=== PATIENT | female | born 2000 | race Caucasian/White ===

== ENCOUNTER 2021-07-12 10:17 | Emergency (ER) | payer MEDICAID, SELFPAY ==
[2021-07-12 10:32] VITALS: BP 112/54; PULSE 72; RESP 16; TEMP 37.1; O2SAT 99
--- NOTE | 2021-07-12 10:32 | ED.URI ---
HPI - URI/Sore Throat General Chief Complaint: Upper Respiratory Infection Stated Complaint: Sinus Time Seen by Provider: 07/12/21 10:32 Source: patient and RN notes reviewed Mode of arrival: ambulatory Limitations: no limitations History of Present Illness HPI Narrative: 20-year-old female presents to the [facility] with complaints of sinus congestion since yesterday. Patient states that she takes daily allergy medication. Has tried DayQuil and NyQuil. Took a home COVID test last night which was negative. Denies fevers. Reports cough worse at night. MD elicited complaint: nasal congestion and sinus pain Onset (ago): day(s) (1) Related Data Home Medications Medication Instructions Recorded Confirmed No Home Medications 07/12/21 07/12/21 Allergies Allergy/AdvReac Type Severity Reaction Status Date / Time No Known Allergies Allergy Verified 07/12/21 11:03 Review of Systems Review of Systems: All systems reviewed & are unremarkable except as noted in HPI and below Constitutional: Constitutional: Reports no additional constitutional complaints, Denies chills and Denies fever(s) Eyes: Eyes: Reports no additional eye complaints ENT: Reports as per HPI and Reports nasal congestion Cardiovascular: Cardiovascular: Reports no additional cardiovascular complaints Respiratory: Respiratory: Reports as per HPI, Denies chest congestion, Reports cough, Denies dyspnea and Denies wheezing Gastrointestinal: Gastrointestinal: Reports no additional gastrointestinal complaints Musculoskeletal: Musculoskeletal: Reports no additional musculoskeletal complaints Integumentary/Breasts: Skin/Breast: Reports system reviewed and no additional complaints, except as docu Neurologic: Reports system reviewed and no additional complaints, except as documented Psychiatric: Psychiatric: Reports no additional psychiatric complaints Allergic/Immunologic: Allergic/Immunologic: Reports no additional allergic/immunologic complaints [facility] Past Medical History Medical History (Updated 07/12/21 @ 11:05 by Kiley Marsh APRN) Seasonal allergies Surgical History Surgical History (Updated 07/12/21 @ 11:03 by Kiley Marsh APRN) No pertinent past surgical history Social History Social History (Updated 07/12/21 @ 18:32 by Kiley Marsh APRN) Living arrangements: with friend(s) Occupation/Education: unemployed Gender identity (if verbalized by the patient): Female Comments At the time of my signature, I reviewed and agree with the nursing past medical, surgical, social, and family history. There is no relevant family history pertinent to the patient complaint. Exam Const: General: healthy appearing, no acute distress and alert Nutritional Appearance: well nourished Orientation/consciousness: patient oriented x3 Limitations: no limitations HENMT: Head: normal to inspection Ears: external ears normal, EAC's normal and TM abnormal with fluid behind the TM bilateral; not erythematous General nose exam: Normal external nose present, Normal nasal mucous membranes and turbinates present and Nasal discharge present clear bilateral Throat: tonsils normal, uvula midline and postnasal drainage Eyes: General: appearance normal, both eyes and all related structures Pupils: Equal, round and reactive pupils present Neck: Neck: normal visual inspection, no lymphadenopathy and no meningeal signs Chest: Chest palpation & inspection: normal inspection of the chest Resp: Effort & Inspection: normal respiratory effort and no use of accessory muscles Auscultation: clear to auscultation bilaterally, no crackles, no rales, no rhonchi and no wheezes Cardio: Rate: regular rate Rhythm: regular rhythm Back/Spine/Pelvis: Cervical Spine: normal cervical lordosis Thoracic/Lumbar Spine: thoracic and lumbar spine normal to inspection Skin: General skin exam: normal color Rashes: no rashes Wounds: no wounds Neuro: General: patient froilan
[2021-07-12 21:07] LABS: SARS-CoV-2 RNA PCR Negative
== END 2021-07-12 11:32 | disposition home or self-care (01) ==
PROVIDERS: Emergency Provider Nurse Practitioner
DX: J06.9 Acute upper respiratory infection, unspecified (principal); Z20.822 Contact with and (suspected) exposure to COVID-19; H65.03 Acute serous otitis media, bilateral; H61.23 Impacted cerumen, bilateral
CPT/HCPCS: 69210; 87804; 99203; C9803; G0463; U0003; U0005

== ENCOUNTER 2021-08-15 05:27 | Emergency (ER) | payer OTHER, SELFPAY ==
[2021-08-15 05:32] VITALS: BP 117/58; PULSE 82; RESP 18; TEMP 36.7; O2SAT 100
--- NOTE | 2021-08-15 05:53 | ED.GENADULT ---
HPI - General Adult General Chief complaint: Unspecified Stated complaint: bilateral hand numbness x3 weeks Time Seen by Provider: 08/15/21 05:41 Source: patient History of Present Illness HPI narrative: Patient presents with paresthesias to bilateral hands is present for approximately 3 weeks she has not had any prior evaluation. Patient reports she will get intermittent numbness and tingling sensation in her hands. Reports the numbness and tingling located at the wrist but does extend to the hands. The numbness and tingling is sometimes the radial side of her hand sometimes on the ulnar side sometimes its in the palm and sometimes on the backside of her hand she is unable to identify any clear aggravating or alleviating symptoms. Reports sometimes she will get a pinching sensation on her hands. Today her left hand is worse than her right but symptoms wax and wane alternate hands and alternate locations on the hand. She denies any trauma or injury denies any focal weakness. Denies any prior history of similar symptoms. Denies any nausea or vomiting she denies any neck pain. Patient ports she has been at a [employer] for the past few months and was unsure if her symptoms are related. Related Data Home Medications Medication Instructions Recorded Confirmed No Home Medications 07/12/21 07/12/21 Allergies Allergy/AdvReac Type Severity Reaction Status Date / Time No Known Allergies Allergy Verified 07/12/21 11:03 Review of Systems Review of Systems: CONSTITUTIONAL: Denies fever, chills, or sweats. EYES: Denies visual changes, redness, or discharge. GASTROINTESTINAL: Denies abdominal pain, nausea, vomiting, or diarrhea. GENITOURINARY: Denies dysuria or hematuria. SKIN: Denies rash or itching. MUSCULOSKELETAL: Denies back pain, joint pain, or myalgia. NEUROLOGIC: Denies headache, dizziness, or weakness. PMFSH Past Medical History Medical History Seasonal allergies Surgical History Surgical History No pertinent past surgical history Social History Social History Gender identity (if verbalized by the patient): Female Exam Narrative: GENERAL: Well-appearing, well-nourished, and in no acute distress. HEAD: Normocephalic, atraumatic. EYES: PERRLA and EOMI. ENT: Nares clear, no rhinorrhea or epistaxis. Mucous membranes moist. NECK: Supple. No masses. No JVD EXTREMITIES: Normal range of motion. No edema. Negative Tinel's SKIN: Warm, dry, no rash. NEURO: 5 out of 5 qualifications examiner strength in the bilateral hands have a strength in the lumbricals bilateral hands 5 out of 5 strength in opposition in the bilateral thumbs patient intact light touch alert and oriented x3. PSYCH: Normal mood and affect. Course Vital Signs Vital signs: Vital Signs Temperature 36.7 C 08/15/21 05:32 Pulse Rate 82 08/15/21 05:32 Respiratory Rate 18 08/15/21 05:32 Blood Pressure 117/58 L 08/15/21 05:32 Pulse Oximetry 100 08/15/21 05:32 Oxygen Delivery Room Air 08/15/21 05:32 Temperature 36.7 C 08/15/21 05:32 Pulse Rate 82 08/15/21 05:32 Respiratory Rate 18 08/15/21 05:32 Blood Pressure 117/58 L 08/15/21 05:32 Pulse Oximetry 100 08/15/21 05:32 Oxygen Delivery Room Air 08/15/21 05:32 Medical Decision Making [facility] Narrative Medical decision making narrative: H&P as above, vss, pt looks clinically well, exam bilateral hands neurovascularly intact, labs/img considered, symptomatic relief available as needed, on reevaluation pt continues to looks clinically well. Symptoms remain of unclear etiology given her job of frequent repetitive motions of the hand that may represent a atypical abdominal syndrome. Patient was offered lab testing to evaluate for electrolyte abnormalities but declined. Patient encouraged to attempt wrist b
== END 2021-08-15 06:07 | disposition home or self-care (01) ==
LOC: ANHED 06:00
PROVIDERS: Emergency Provider Emergency Medicine
DX: R20.2 Paresthesia of skin (principal)
CPT/HCPCS: 99281